=== PATIENT | female | born 1950 | race Caucasian/White ===

== ENCOUNTER 2016-08-11 13:25 | Emergency (ER) | payer OTHER ==
[~2016-08-11] VITALS: Ht 160 cm; Wt 57.0 kg
[2016-08-11 13:26] VITALS: BP 139/78; PULSE 80; RESP 16; TEMP 98.2; O2SAT 98
--- NOTE | 2016-08-11 13:36 | PD ---
Physical Exam Time Seen by Provider: 13:36 Narrative 65 y/o female here with L knee pain after falling out of bed today. Ambulatory. Vital signs reviewed. Seen at triage desk. Awaiting bed placement. Data Data Last Documented VS Vital Signs Date Time Temp Pulse Resp B/P Pulse Ox O2 Delivery O2 Flow Rate FiO2 08/11/16 13:26 98.2 80 16 139/78 98 MDM Medical Record Reviewed: Yes Supervised Visit with FIDEL: Kishore Madden Aug 11, 2016 13:36
--- NOTE | 2016-08-11 13:42 | PD ---
HPI Chief Complaint: Injury Time Seen by Provider: 13:42 Travel History International Travel<30 days: No Contact w/Intl Traveler<30days: No Traveled to known affect area: No History of Present Illness HPI 65-year-old female presents the emergency department after "falling out of her bed". Patient states her bed is high at approximate 3 feet drop. She has her left knee and is now complaining of knee pain. She is able to ambulate with a limp. Patient states it happened this morning, and she landed on both knees but the left knee is much worse. She was able work today but because she works at a [employer] headache worse through the day. Patient has not taken any medication for. Here for evaluation. Pain is approximately a 6 out of 10. She has no known drug allergies. [facility] Social History Alcohol Use: Yes Tobacco Use: No Substance Use: No Allergies-Medications (Allergen,Severity, Reaction): Coded Allergies: No Known Allergies (Unverified , 08/11/16) Review of Systems Except as stated in HPI: all other systems reviewed are Neg General / Constitutional: No: Fever Eyes: No: Visual changes HENT: No: Headaches Cardiovascular: No: Chest Pain or Discomfort Respiratory: No: Shortness of Breath Gastrointestinal: No: Abdominal Pain Genitourinary: No: Dysuria Musculoskeletal: Positive: Arthralgias, Limited ROM, Pain Skin: No Rash Neurologic: No: Weakness Psychiatric: No: Depression Endocrine: No: Polydipsia Hematologic/Lymphatic: No: Easy Bruising Physical Exam Narrative GENERAL: Patient appears in mild distress. SKIN: Warm and dry. Normal color. Normal turgor. Patient has ecchymosis to the left anterior knee just below the patella. There is mild swelling and effusion anteriorly. HEAD: Atraumatic. Normocephalic. EYES: Pupils equal and round. No scleral icterus. No injection or drainage. ENT: No nasal bleeding or discharge. Mucous membranes pink and moist. Pharynx is normal. NECK: Trachea midline. Supple nontender. CARDIOVASCULAR: Regular rate and rhythm. RESPIRATORY: No accessory muscle use. Clear to auscultation. Breath sounds equal bilaterally. MUSCULOSKELETAL: Extremities without clubbing, cyanosis, or edema. No obvious deformities. Patient has mild effusion to the left knee bilaterally of the patella. She has localized ecchymosis and swelling or tenderness with palpation just below the patella. No other significant laxity, negative drawer , and negative Eamon's test at this time. NEUROLOGICAL: Awake and alert. No obvious cranial nerve deficits. Motor grossly within normal limits. Five out of 5 muscle strength in the arms and legs. Normal speech. PSYCHIATRIC: Appropriate mood and affect; insight and judgment normal. Data Data Last Documented VS Vital Signs Date Time Temp Pulse Resp B/P Pulse Ox O2 Delivery O2 Flow Rate FiO2 08/11/16 14:00 18 98 Room Air 08/11/16 13:26 98.2 80 139/78 Orders Knee, Complete (4vws) (08/11/16 13:42) Ice/Cold Pack (08/11/16 13:42) Ibuprofen (Motrin) (08/11/16 14:45) Splint Or Brace Apply/Monitor (08/11/16 14:38) [facility] Medical Decision Making Medical Screen Exam Complete: Yes Emergency Medical Condition: Yes Differential Diagnosis Fall from bed. Left knee contusion. Left knee fracture. Left knee effusion. Narrative Course Patient is stable at time of exam. Ice pack is applied to the injured area. X-rays of the left knee are obtained. X-rays show no acute fracture or dislocation. Patient is placed in a knee immobilizer. Patient is given ibuprofen 600 mg by mouth. Patient will be discharged home with knee immobilizer and ibuprofen 600 mg 4 times a day with food. Patient is to ice the area frequently. Patient is given a note for work. Patient follow with her primary care physician or return to the emergency department as needed. Diagnosis Primary Impression: Contusion of left knee, initial encounter Referrals: Primary Care Physician Patient Instructions: Contusion in Adults (ED), General Instructions, Knee Immobilizer (ED) Departure Forms: Work Release Enter return to work date: Aug 14, 2016 Additional Instructions: X-rays show no acute fracture or dislocation. Patient is placed in a knee immobilizer. Patient is given ibuprofen 600 mg by mouth. Patient will be discharged home with knee immobilizer and ibuprofen 600 mg 4 times a day with food. Patient is to ice the area frequently. Patient is given a note for work. Patient follow with her primary care physician or return to the emergency department as needed. Med/Other Pt SpecificInfo: Prescription(s) given Disposition: DISCHARGE HOME Condition: Stable Bertram De León Aug 11, 2016 13:42
--- NOTE | 2016-08-11 14:41 | RADRPT ---
EXAM DATE/TIME: 08/11/2016 14:11 [facility] COMPARISON: No previous studies available for comparison. INDICATIONS : Patient fell out of bed this morning. MEDICAL HISTORY : None. SURGICAL HISTORY : None. ENCOUNTER: Initial ACUITY: 1 day PAIN SCORE: 8/10 LOCATION: Left Patella region. FINDINGS: 4 views left knee. Diffuse bony demineralization .Bone alignment within normal limits. No evidence o f fracture. Large joint effusion. CONCLUSION: Large joint effusion. No evidence of fracture. Stanislav Kaye MD on August 11, 2016 at 14:32 Board Certified Radiologist. This report was verified electronically.
[2016-08-11] MEDS ORDERED: IBUPROFEN 600 MG TAB PO ONE (14:45)
[2016-08-11] MEDS ORDERED: IBUP-232 PO (14:46)
== END 2016-08-11 15:19 | disposition home or self-care (01) ==
LOC: NEPK 13:25
DX: S80.02XA Contusion of left knee, initial encounter (principal); W06.XXXA Fall from bed, initial encounter
CPT/HCPCS: 73564; 99283; L1830